=== PATIENT | male | born 1985 | race Caucasian/White ===

== ENCOUNTER 2019-02-14 01:47 | Inpatient (IN) | payer OTHER, MEDICAID ==
[2019-02-14 02:11] LABS: ADD MAN DIFF? NO
[2019-02-14 02:18] LABS: BASOPHILS % 0.3 % (0.0-2.0); EOSINOPHILS % 0.3 % (0.0-7.0); HEMATOCRIT 39.1 % (42.0-52.0); HEMOGLOBIN 12.8 g/dl (14.0-18.0); LYMPHOCYTES # 1.7 10^3/ul (0.8-2.9); LYMPHOCYTES % 14.2 % (15.0-51.0); MEAN CORPUSCULAR HEMOGLOBIN 31.4 pg (29.0-33.0); MEAN CORPUSCULAR HGB CONC 32.7 g/dl (32.0-37.0); MEAN CORPUSCULAR VOLUME 95.8 fl (82.0-101.0); MEAN PLATELET VOLUME 9.5 fl (7.4-10.4); MONOCYTE # 0.9 10^3/ul (0.3-0.9); MONOCYTES % 7.8 % (0.0-11.0); NEUTROPHIL # 9.1 10^3/ul (1.6-7.5); NEUTROPHILS % 77.1 % (39.0-77.0); PLATELET COUNT 195 10^3/UL (140-415); RED BLOOD COUNT 4.08 10^6/ul (4.70-6.10); RED CELL DISTRIBUTION WIDTH 12.9 % (11.5-14.5)
[2019-02-14 02:18] LABS: WHITE BLOOD COUNT 11.8 10^3/ul (4.8-10.8)
[2019-02-14] MEDS: CEFEPIME 2GM/50 ML (PMX) 50 ML IVPB (02:28)
[2019-02-14 02:37] LABS: LACTIC ACID 1.1 mmol/L (0.5-2.0)
[2019-02-14 02:38] LABS: INR 0.96; PROTIME 12.9 Sec (11.9-14.9)
[2019-02-14 02:39] LABS: PARTIAL THROMBOPLASTIN TIME 34.9 Sec (23.0-35.0)
[2019-02-14 02:41] LABS: ALANINE AMINOTRANSFERASE 24 IU/L (13-69); ALBUMIN 4.6 g/dl (3.3-4.9); ALBUMIN/GLOBULIN RATIO 1.48; ALKALINE PHOSPHATASE 95 IU/L (42-121); ANION GAP 16 (5-13); ASPARTATE AMINO TRANSFERASE 9 IU/L (15-46); BILIRUBIN,INDIRECT 0.4 mg/dl (0-1.1); BILIRUBIN,TOTAL 0.4 mg/dl (0.2-1.3); BLOOD UREA NITROGEN 47 mg/dl (7-20); CALCIUM 9.2 mg/dl (8.4-10.2); CARBON DIOXIDE 30 mmol/L (21-31); CHLORIDE 96 mmol/L (97-110); GLUCOSE 104 mg/dl (70-220); POTASSIUM 4.9 mmol/L (3.5-5.1); SODIUM 142 mmol/L (135-144); TOTAL PROTEIN 7.7 g/dl (6.1-8.1)
[2019-02-14 02:47] LABS: Estimated GFR 4 mL/min (>60)
[2019-02-14 02:50] LABS: TROPONIN-I < 0.012 ng/ml (0.000-0.120)
[2019-02-14] MEDS: VANCOMYCIN 1 GM (PMX) 250 ML IVPB (02:52)
[2019-02-14] MEDS ORDERED: ONDANSETRON 4 MG INJ IV (03:00)
[2019-02-14] MEDS ORDERED: NACL 0.9% 3 ML SYG IV (03:00)
[2019-02-14] MEDS ORDERED: BISACODYL (EC) 5 MG TAB PO (03:00)
[2019-02-14] MEDS ORDERED: DOCUSATE SODIUM 100 MG CAP PO (03:00)
[2019-02-14 03:04] LABS: CREATININE 13.58 mg/dl (0.61-1.24)
[2019-02-14] MEDS: DIPHENHYDRAMINE 50 MG INJ IV (05:10)
[2019-02-14] MEDS: SOD CHLORIDE 0.9% 250 ML IV (05:30)
[2019-02-14 06:10] LABS: LACTIC ACID 0.8 mmol/L (0.5-2.0)
[2019-02-14 06:12] LABS: PHOSPHORUS 3.8 mg/dl (2.5-4.9)
[2019-02-14 06:12] LABS: CHOL/HDL RATIO 2.5 RATIO; CHOLESTEROL 122 mg/dl (100-200); HDL CHOLESTEROL 48 mg/dl (28-63); LDL CHOLESTEROL,CALCULATED 60 mg/dl; MAGNESIUM 2.4 mg/dl (1.7-2.5); TRIGLYCERIDES 68 mg/dl (0-149)
[2019-02-14] MEDS: DIPHENHYDRAMINE 50 MG CAP PO (07:35)
[2019-02-14 07:41] LABS: HEMOGLOBIN A1C 4.9 % (0-5.9)
[2019-02-14] MEDS ORDERED: AZITHROMYCIN 500MG/NS (PMX) 250 ML IVPB (08:00)
[2019-02-14 08:13] LABS: THYROID STIMULATING HORMONE 0.376 MIU/L (0.465-4.680)
[2019-02-14] MEDS: ACETAMINOPHEN 325 MG TAB PO (09:29)
[2019-02-14] MEDS: CEFTRIAXONE 2 GM/50 ML (PMX) 50 ML IVPB (09:35)
[2019-02-14] MEDS ORDERED: VANCOMYCIN IV PER PHARMACY XX (10:30)
[2019-02-14] MEDS: GUAIFENESIN/DM (SR) TAB PO ×2 (10:54→19:35)
[2019-02-14] MEDS: ALBUTEROL/IPRATROPIUM (NEB) 3 ML AMP HHN ×2 (14:33→19:38)
[2019-02-14] MEDS: morphine 2 MG INJ IV ×3 (15:34→23:13)
[2019-02-14] MEDS: IBUPROFEN 400 MG TAB PO (23:11)
[2019-02-15] MEDS: CEFEPIME 1GM/50 ML (PMX) 50 ML IVPB (03:05)
[2019-02-15 06:16] LABS: ADD MAN DIFF? NO
[2019-02-15 06:21] LABS: WHITE BLOOD COUNT 9.3 10^3/ul (4.8-10.8)
[2019-02-15 06:21] LABS: BASOPHILS % 0.3 % (0.0-2.0); EOSINOPHILS # 0.1 10^3/ul (0.0-0.5); HEMATOCRIT 32.4 % (42.0-52.0); HEMOGLOBIN 10.5 g/dl (14.0-18.0); LYMPHOCYTES # 1.7 10^3/ul (0.8-2.9); LYMPHOCYTES % 18.4 % (15.0-51.0); MEAN CORPUSCULAR HEMOGLOBIN 31.4 pg (29.0-33.0); MEAN CORPUSCULAR HGB CONC 32.4 g/dl (32.0-37.0); MEAN PLATELET VOLUME 10.3 fl (7.4-10.4); MONOCYTE # 0.8 10^3/ul (0.3-0.9); MONOCYTES % 8.5 % (0.0-11.0); NEUTROPHIL # 6.7 10^3/ul (1.6-7.5); NEUTROPHILS % 71.4 % (39.0-77.0); PLATELET COUNT 157 10^3/UL (140-415); RED BLOOD COUNT 3.34 10^6/ul (4.70-6.10); RED CELL DISTRIBUTION WIDTH 12.7 % (11.5-14.5)
[2019-02-15 06:49] LABS: ALANINE AMINOTRANSFERASE 15 IU/L (13-69); ALBUMIN 3.7 g/dl (3.3-4.9); ALBUMIN/GLOBULIN RATIO 1.27; ALKALINE PHOSPHATASE 62 IU/L (42-121); ANION GAP 13 (5-13); ASPARTATE AMINO TRANSFERASE < 8 IU/L (15-46); BILIRUBIN,INDIRECT 0.2 mg/dl (0-1.1); BILIRUBIN,TOTAL 0.2 mg/dl (0.2-1.3); BLOOD UREA NITROGEN 66 mg/dl (7-20); CARBON DIOXIDE 27 mmol/L (21-31); CHLORIDE 97 mmol/L (97-110); GLUCOSE 88 mg/dl (70-220); MAGNESIUM 2.8 mg/dl (1.7-2.5); PHOSPHORUS 5.2 mg/dl (2.5-4.9); POTASSIUM 5.7 mmol/L (3.5-5.1); SODIUM 137 mmol/L (135-144); TOTAL PROTEIN 6.6 g/dl (6.1-8.1)
[2019-02-15 07:06] LABS: CREATININE 17.54 mg/dl (0.61-1.24); Estimated GFR 3 mL/min (>60)
[2019-02-15] MEDS: GUAIFENESIN/DM (SR) TAB PO ×2 (08:31→21:01)
[2019-02-15] MEDS: IBUPROFEN 400 MG TAB PO ×4 (08:31→20:37)
[2019-02-15] MEDS: ALBUTEROL/IPRATROPIUM (NEB) 3 ML AMP HHN ×3 (08:37→20:32)
[2019-02-15] MEDS: MULTIVIT/CA CARB/B CMPLX/FA TAB PO (11:30)
[2019-02-15 12:16] LABS: HEPATITIS B SURFACE ANTIGEN NEGATIVE (NEGATIVE)
[2019-02-15 12:48] LABS: HEPATITIS B SURFACE ANTIBODY POSITIVE (NEGATIVE)
[2019-02-15] MEDS: CALCIUM ACETATE 667 MG CAP PO ×2 (12:56→21:01)
[2019-02-15] MEDS: SEVELAMER CARBONATE 0.8 GM PKT PO ×2 (12:57→21:01)
[2019-02-16] MEDS: ACETAMINOPHEN 325 MG TAB PO (03:56)
[2019-02-16] MEDS: CEFEPIME 1GM/50 ML (PMX) 50 ML IVPB (03:56)
[2019-02-16 06:00] LABS: ADD MAN DIFF? NO
[2019-02-16 06:07] LABS: BASOPHILS % 0.3 % (0.0-2.0); EOSINOPHILS # 0.2 10^3/ul (0.0-0.5); EOSINOPHILS % 2.2 % (0.0-7.0); HEMATOCRIT 35.3 % (42.0-52.0); HEMOGLOBIN 11.4 g/dl (14.0-18.0); LYMPHOCYTES # 1.1 10^3/ul (0.8-2.9); LYMPHOCYTES % 13.8 % (15.0-51.0); MEAN CORPUSCULAR HGB CONC 32.3 g/dl (32.0-37.0); MEAN CORPUSCULAR VOLUME 95.9 fl (82.0-101.0); MEAN PLATELET VOLUME 9.9 fl (7.4-10.4); MONOCYTE # 0.6 10^3/ul (0.3-0.9); MONOCYTES % 8.1 % (0.0-11.0); NEUTROPHIL # 5.9 10^3/ul (1.6-7.5); NEUTROPHILS % 75.1 % (39.0-77.0); PLATELET COUNT 191 10^3/UL (140-415); RED BLOOD COUNT 3.68 10^6/ul (4.70-6.10); RED CELL DISTRIBUTION WIDTH 12.8 % (11.5-14.5)
[2019-02-16 06:07] LABS: WHITE BLOOD COUNT 7.8 10^3/ul (4.8-10.8)
[2019-02-16 06:32] LABS: ALANINE AMINOTRANSFERASE 11 IU/L (13-69); ALBUMIN 4.2 g/dl (3.3-4.9); ALBUMIN/GLOBULIN RATIO 1.35; ALKALINE PHOSPHATASE 73 IU/L (42-121); ANION GAP 14 (5-13); ASPARTATE AMINO TRANSFERASE < 8 IU/L (15-46); BILIRUBIN,INDIRECT 0.2 mg/dl (0-1.1); BILIRUBIN,TOTAL 0.2 mg/dl (0.2-1.3); BLOOD UREA NITROGEN 40 mg/dl (7-20); CALCIUM 9.4 mg/dl (8.4-10.2); CARBON DIOXIDE 25 mmol/L (21-31); CHLORIDE 99 mmol/L (97-110); CREATININE 12.94 mg/dl (0.61-1.24); Estimated GFR 4 mL/min (>60); GLUCOSE 92 mg/dl (70-220); PHOSPHORUS 7.3 mg/dl (2.5-4.9); POTASSIUM 5.2 mmol/L (3.5-5.1); SODIUM 138 mmol/L (135-144); TOTAL PROTEIN 7.3 g/dl (6.1-8.1)
[2019-02-16 06:34] LABS: VANCOMYCIN,RANDOM 12.9 ug/ml
[2019-02-16] MEDS: ALBUTEROL/IPRATROPIUM (NEB) 3 ML AMP HHN ×3 (07:38→19:56)
[2019-02-16] MEDS: SEVELAMER CARBONATE 0.8 GM PKT PO ×3 (08:32→21:49)
[2019-02-16] MEDS: GUAIFENESIN/DM (SR) TAB PO ×2 (08:33→21:48)
[2019-02-16] MEDS: METOPROLOL 25 MG TAB PO (08:33)
[2019-02-16] MEDS: MULTIVIT/CA CARB/B CMPLX/FA TAB PO (08:33)
[2019-02-16] MEDS: CALCIUM ACETATE 667 MG CAP PO ×3 (08:33→21:48)
[2019-02-16] MEDS: VANCOMYCIN 1 GM (PMX) 250 ML IVPB (11:42)
[2019-02-16] MEDS: IBUPROFEN 400 MG TAB PO ×2 (13:10→21:48)
[2019-02-16] MEDS: IODIXANOL LOCM 100 ML BTL (13:12)
[2019-02-16] MEDS: SOD CHLORIDE 0.9% 100 ML (13:12)
[2019-02-16 13:13] LABS: D-DIMER 880.72 ng/ml (<460)
[2019-02-17] MEDS: CEFEPIME 1GM/50 ML (PMX) 50 ML IVPB (03:37)
[2019-02-17 06:06] LABS: ADD MAN DIFF? NO
[2019-02-17 06:16] LABS: BASOPHILS % 0.3 % (0.0-2.0); EOSINOPHILS # 0.2 10^3/ul (0.0-0.5); EOSINOPHILS % 2.7 % (0.0-7.0); HEMATOCRIT 34.7 % (42.0-52.0); HEMOGLOBIN 11.4 g/dl (14.0-18.0); LYMPHOCYTES % 16.3 % (15.0-51.0); MEAN CORPUSCULAR HEMOGLOBIN 31.3 pg (29.0-33.0); MEAN CORPUSCULAR HGB CONC 32.9 g/dl (32.0-37.0); MEAN CORPUSCULAR VOLUME 95.3 fl (82.0-101.0); MONOCYTE # 0.6 10^3/ul (0.3-0.9); MONOCYTES % 9.3 % (0.0-11.0); NEUTROPHIL # 4.5 10^3/ul (1.6-7.5); NEUTROPHILS % 70.5 % (39.0-77.0); PLATELET COUNT 235 10^3/UL (140-415); RED BLOOD COUNT 3.64 10^6/ul (4.70-6.10); RED CELL DISTRIBUTION WIDTH 12.4 % (11.5-14.5)
[2019-02-17 06:16] LABS: WHITE BLOOD COUNT 6.4 10^3/ul (4.8-10.8)
[2019-02-17 06:47] LABS: ALANINE AMINOTRANSFERASE 18 IU/L (13-69); ALBUMIN/GLOBULIN RATIO 1.14; ALKALINE PHOSPHATASE 76 IU/L (42-121); ANION GAP 15 (5-13); ASPARTATE AMINO TRANSFERASE 11 IU/L (15-46); BILIRUBIN,INDIRECT 0.2 mg/dl (0-1.1); BILIRUBIN,TOTAL 0.2 mg/dl (0.2-1.3); BLOOD UREA NITROGEN 35 mg/dl (7-20); CALCIUM 9.4 mg/dl (8.4-10.2); CARBON DIOXIDE 25 mmol/L (21-31); CHLORIDE 99 mmol/L (97-110); CREATININE 11.12 mg/dl (0.61-1.24); Estimated GFR 5 mL/min (>60); GLUCOSE 95 mg/dl (70-220); PHOSPHORUS 7.1 mg/dl (2.5-4.9); POTASSIUM 5.1 mmol/L (3.5-5.1); SODIUM 139 mmol/L (135-144); TOTAL PROTEIN 7.5 g/dl (6.1-8.1)
[2019-02-17] MEDS: ALBUTEROL/IPRATROPIUM (NEB) 3 ML AMP HHN ×3 (07:51→20:17)
[2019-02-17] MEDS: GUAIFENESIN/DM (SR) TAB PO ×2 (08:08→20:18)
[2019-02-17] MEDS: CALCIUM ACETATE 667 MG CAP PO ×3 (08:08→20:18)
[2019-02-17] MEDS: MULTIVIT/CA CARB/B CMPLX/FA TAB PO (08:08)
[2019-02-17] MEDS: METOPROLOL 25 MG TAB PO (08:09)
[2019-02-17] MEDS: SEVELAMER CARBONATE 0.8 GM PKT PO (08:09)
[2019-02-17] MEDS: IBUPROFEN 400 MG TAB PO ×2 (08:09→22:58)
[2019-02-17] MEDS: SEVELAMER CARBONATE 2.4 GM PKT PO ×2 (12:26→20:18)
[2019-02-18] MEDS: CEFEPIME 1GM/50 ML (PMX) 50 ML IVPB (03:49)
[2019-02-18 05:38] LABS: ADD MAN DIFF? NO
[2019-02-18 05:55] LABS: WHITE BLOOD COUNT 6.6 10^3/ul (4.8-10.8)
[2019-02-18 05:55] LABS: BASOPHILS % 0.3 % (0.0-2.0); EOSINOPHILS # 0.2 10^3/ul (0.0-0.5); HEMATOCRIT 33.2 % (42.0-52.0); HEMOGLOBIN 11.1 g/dl (14.0-18.0); LYMPHOCYTES # 1.3 10^3/ul (0.8-2.9); MEAN CORPUSCULAR HEMOGLOBIN 31.4 pg (29.0-33.0); MEAN CORPUSCULAR HGB CONC 33.4 g/dl (32.0-37.0); MEAN CORPUSCULAR VOLUME 94.1 fl (82.0-101.0); MEAN PLATELET VOLUME 9.6 fl (7.4-10.4); MONOCYTE # 0.7 10^3/ul (0.3-0.9); MONOCYTES % 9.8 % (0.0-11.0); NEUTROPHIL # 4.4 10^3/ul (1.6-7.5); NEUTROPHILS % 66.7 % (39.0-77.0); PLATELET COUNT 255 10^3/UL (140-415); RED BLOOD COUNT 3.53 10^6/ul (4.70-6.10); RED CELL DISTRIBUTION WIDTH 12.5 % (11.5-14.5)
[2019-02-18 06:22] LABS: ALANINE AMINOTRANSFERASE 16 IU/L (13-69); ALBUMIN 3.9 g/dl (3.3-4.9); ALKALINE PHOSPHATASE 66 IU/L (42-121); ANION GAP 15 (5-13); ASPARTATE AMINO TRANSFERASE 13 IU/L (15-46); BILIRUBIN,INDIRECT 0.2 mg/dl (0-1.1); BILIRUBIN,TOTAL 0.2 mg/dl (0.2-1.3); BLOOD UREA NITROGEN 58 mg/dl (7-20); CALCIUM 9.3 mg/dl (8.4-10.2); CARBON DIOXIDE 23 mmol/L (21-31); CHLORIDE 98 mmol/L (97-110); GLUCOSE 91 mg/dl (70-220); POTASSIUM 5.2 mmol/L (3.5-5.1); SODIUM 136 mmol/L (135-144); TOTAL PROTEIN 6.9 g/dl (6.1-8.1)
[2019-02-18 06:36] LABS: CREATININE 14.68 mg/dl (0.61-1.24); Estimated GFR 4 mL/min (>60)
[2019-02-18] MEDS: ALBUTEROL/IPRATROPIUM (NEB) 3 ML AMP HHN ×2 (08:00→08:12)
[2019-02-18] MEDS: METOPROLOL 25 MG TAB PO (08:26)
[2019-02-18] MEDS: MULTIVIT/CA CARB/B CMPLX/FA TAB PO (08:26)
[2019-02-18] MEDS: SEVELAMER CARBONATE 2.4 GM PKT PO ×2 (08:26→12:13)
[2019-02-18] MEDS: CALCIUM ACETATE 667 MG CAP PO ×2 (08:26→12:13)
[2019-02-18] MEDS: GUAIFENESIN/DM (SR) TAB PO (08:26)
[2019-02-18] MEDS: IBUPROFEN 400 MG TAB PO (08:26)
[2019-02-18] MEDS: LEVOFLOXACIN 750 MG TABLET PO (14:19)
== END 2019-02-18 16:19 | disposition home or self-care (01) | DRG 871 ==
LOC: E/R 01:47 → 6WM 02:56
PROC: 5A1D70Z Performance of Urinary Filtration, Intermittent, Less than 6 Hours Per Day (ICD-10-PCS; principal; 2019-02-15)
PROC: 5A1D70Z Performance of Urinary Filtration, Intermittent, Less than 6 Hours Per Day (ICD-10-PCS; 2019-02-18)
DX: A41.9 Sepsis, unspecified organism (principal); N18.6 End stage renal disease; J18.9 Pneumonia, unspecified organism; J96.00 Acute respiratory failure, unspecified whether with hypoxia or hypercapnia; I12.0 Hypertensive chronic kidney disease with stage 5 chronic kidney disease or end stage renal disease; R07.81 Pleurodynia; E87.5 Hyperkalemia; D63.1 Anemia in chronic kidney disease; Z99.2 Dependence on renal dialysis
CPT/HCPCS: 36415; 71045; 71275; 74176; 80053; 80061; 80202; 83036; 83605; 83735; 84100; 84443; 84484; 85025; 85378; 85610; 85730; 86706; 87040-91; 87070; 87340; 88104; 88305; 90935; 93005; 94640; 94664; 96374; 96375; 99285-25

== ENCOUNTER 2019-03-05 21:29 | Emergency (ER) | payer SELFPAY, OTHER | END 2019-03-05 23:44 | disposition left against medical advice (07) | LOC: E/R 21:29 | DX: Z53.21 Procedure and treatment not carried out due to patient leaving prior to being seen by health care provider (principal) ==

== ENCOUNTER 2019-04-30 22:55 | Emergency (ER) | payer OTHER ==
[2019-05-01] MEDS: HYDROCODONE/APAP (10/325) TAB PO (00:18)
[2019-05-01] MEDS: LIDOCAINE 1% (MDV) 20 ML INJ SC (00:19)
[2019-05-01] MEDS: BACITRACIN 0.9 GM OINT TOP (00:19)
[2019-05-01] MEDS: DIPHTH/TET/ACEL PERTUSS (ADULT) 0.5 ML VIAL IM* (00:19)
== END 2019-05-01 01:41 | disposition home or self-care (01) ==
LOC: FTE 05-01 01:41
DX: S01.81XA Laceration without foreign body of other part of head, initial encounter (principal); I10 Essential (primary) hypertension; W22.03XA Walked into furniture, initial encounter; Y92.9 Unspecified place or not applicable; Z23 Encounter for immunization
CPT/HCPCS: 12011; 90471; 90715; 99283-25

== ENCOUNTER 2019-05-02 19:18 | Emergency (ER) | payer OTHER | END 2019-05-02 20:05 | disposition home or self-care (01) | LOC: FTE 19:18 | DX: Z48.00 Encounter for change or removal of nonsurgical wound dressing (principal) | CPT/HCPCS: 99281; Z7502 ==